=== PATIENT | female | born 1950 | race Two or more races ===

== ENCOUNTER → 2022-08-02 12:39 | Outpatient (BNVA) | payer MEDICARE, OTHER, SELFPAY | PROVIDERS: PCP Physician Assistant; Visit Provider Psychiatry & Neurology Neurology | DX: G45.9 Transient cerebral ischemic attack, unspecified (principal); H34.9 Unspecified retinal vascular occlusion; R41.3 Other amnesia; R06.83 Snoring; G47.00 Insomnia, unspecified; I48.91 Unspecified atrial fibrillation; Z79.01 Long term (current) use of anticoagulants; Z79.82 Long term (current) use of aspirin | CPT/HCPCS: 99202 ==

== ENCOUNTER → 2022-09-23 14:59 | Outpatient (REF) | payer MEDICARE, OTHER, SELFPAY | LOC: HO.SL 14:59 | PROVIDERS: Visit Provider Psychiatry & Neurology Neurology | DX: G47.00 Insomnia, unspecified (principal); G47.10 Hypersomnia, unspecified; R06.83 Snoring | CPT/HCPCS: 95806 ==

== ENCOUNTER → 2022-11-04 10:34 | Outpatient (BNVA) | payer MEDICARE, OTHER, SELFPAY | PROVIDERS: PCP Physician Assistant; Visit Provider Psychiatry & Neurology Neurology | DX: R06.83 Snoring (principal); G47.00 Insomnia, unspecified; I48.91 Unspecified atrial fibrillation; R41.3 Other amnesia; G45.9 Transient cerebral ischemic attack, unspecified; H34.9 Unspecified retinal vascular occlusion | CPT/HCPCS: 99212 ==

== ENCOUNTER → 2023-02-20 19:30 | Outpatient (REF) | payer MEDICARE, OTHER, SELFPAY | LOC: HO.SL 19:30 | PROVIDERS: PCP Physician Assistant; Visit Provider Psychiatry & Neurology Neurology | DX: G47.10 Hypersomnia, unspecified (principal); G47.00 Insomnia, unspecified; R06.83 Snoring | CPT/HCPCS: 95810 ==

== ENCOUNTER 2023-11-04 09:24 | Outpatient (AMB) | payer MEDICARE, OTHER, SELFPAY ==
--- NOTE | 2023-11-04 09:31 | A.OFFVIS_ITS ---
Intake Vital Signs 11/04/23 09:32 Height 5 ft 10 in Weight 191 lb 2 oz BMI 27.4 BP 148/80 H Blood Pressure Location Lt brachial Position Sitting Respiration 15 Pulse 98 Pulse Source Pulse Oximeter Pulse Oximetry (%) 96 Oxygen Delivery Method Room Air Intake Visit Reasons: F/u for-Snoring/Insomnia - LVM Intake Note: Pt presents to the office for follow up for snoring and insomnia. [place] Leverman Required: No Allergies Sulfa (Sulfonamide Antibiotics) Allergy (Mild, Verified 11/04/23 09:32) Hives HPI HPI Comments History of Present Illness Details 73 y/o female comes for f/u of memory lo ss and sleep study. The PSG sleep study result was no evidence of sleep apnea. The AHI was less than 1/hr and oxygen sven was 90%. She did not have neuropsych evaluation yet. She can sleep 6 hrs, but very light sleep. She uses magnesium 100 mg and melatonin as needed, and it helps her sleep better. She is a retired teacher for 30 years, now owns a business etc. She needs to write a note everyday, feeling needs to monitor everything to keep up the stuffs. She still can handle her business and finances. Previous history-She was seen by puppet engineer 1 year ago for cataract surgery in her right eye, incidentally was also found to have retinal artery occlusion of the left. She denies any symptoms. She had CT brain - MRI brain nonfocal, Carotid Doppler showed no significant stenosis. She was diagnosed with atrial fibrillation and started on Eliquis. Prior to that he was on aspirin and atorvastatin. [facility] Medical History (Updated 11/04/22 @ 11:06 by Suzie Brown MD) Atrial fibrillation Pheochromocytoma Anxiety Pulmonary nodule HTN (hypertension) Hyperlipidemia Neck pain IBS (irritable bowel syndrome) Head injury COPD (chronic obstructive pulmonary disease) GERD (gastroesophageal reflux disease) Prediabetes Surgical History (Updated 11/04/23 @ 09:38 by Elsi Dooley CMA) History of intestinal surgery History of partial cystectomy Hx of eye surgery Family History Mother COPD (chronic obstructive pulmonary disease) Acute arthritis Heart problem Father Diabetes Social History Alcohol intake: current Alcohol intake frequency: does not drink Patient Tobacco Use Status: Former Tobacco user Review of Systems Const All systems reviewed & are unremarkable except as noted in HPI and below Physical Exam Vital Signs: Last Vital Signs Pulse 98 11/04/23 09:32 Resp 15 11/04/23 09:32 BP 148/80 H 11/04/23 09:32 Pulse Ox 96 11/04/23 09:32 Oxygen Delivery Method Room Air 11/04/23 09:32 BMI result Body Mass Index 27.4 Const General: cooperative, healthy appearing, comfortable and no acute distress Nutritional Appearance: average body habitus Orientation/consciousness: patient oriented x3 HEENT Head: Yes normal to inspection Neck Neck: Yes normal visual inspection and Yes full ROM Neuro General: patient oriented x3, gait normal, tone normal, moves all extremities and no focal motor deficits Cranial nerves: Yes Facial sensation intact/muscles of mastication intact, Yes Bilaterally intact EOM present, Yes Nystagmus not present, Yes Normal facial strength present, Yes Midline tongue present and Yes Symmetric palate elevation present Cognition (Neuro): normal cognition Gait exam (Neuro): Normal gait present Motor exam (neuro): 5/5 motor strength present throughout and Normal motor muscle tone present throughout Deep tendon reflexes (DTR's): Right triceps reflex intensity grade: 1+, Left triceps reflex intensity grade: 1+, Rt Biceps (C5, C6): 1+, Left biceps reflex intensity grade: 1+, Right brachioradialis reflex intensity grade: 1+, Left brachioradialis reflex intensity grade: 1+, Right patellar reflex intensity grade: 1+ and Left patellar reflex intensity grade: 1+ Coordination: [id number] test normal Assessment & Plan Assessment & Plan (1) TIA (transient ischemic attack): Comment: likely cardioembolic Code(s): G45.9 - Transient cerebral ischemic attack, unspecified (2) Retinal artery occlusion: Code(s): H34.9 - Unspecified retinal vascular occlusion (3) Memory loss: Code(s): R41.3 - Other amnesia (4) Insomnia: Code(s): G47.00 - Insomnia, unspecified Plan Continue eliquis 5mg bid and atorvastatin 20mg qd. Advised patient to undergo Neuropsych evaluation. Advised patient to try magnesium 400 mg qHS for sleep. Continue to do physical and cognitive exercise. Coding Level of Care Code Est Pt Level 4 (89613) Diagnoses TIA (transient ischemic attack) G45.9 Retinal artery occlusion H34.9 Memory loss R41.3 Insomnia G47.00
[2023-11-04 09:32] VITALS: BP 148/80; PULSE 98; RESP 15; O2SAT 96; BMI 27.4
== END 2023-11-04 10:01 | disposition home or self-care (01) ==
PROVIDERS: PCP Physician Assistant; Visit Provider Nurse Practitioner Family
DX: G45.9 Transient cerebral ischemic attack, unspecified (principal); H34.9 Unspecified retinal vascular occlusion; R41.3 Other amnesia; G47.00 Insomnia, unspecified
CPT/HCPCS: 99214

== ENCOUNTER → 2023-11-04 09:24 | Outpatient (BNVA) | payer MEDICARE, OTHER, SELFPAY | PROVIDERS: PCP Physician Assistant; Visit Provider Nurse Practitioner Family | DX: G45.9 Transient cerebral ischemic attack, unspecified (principal); G47.00 Insomnia, unspecified; H34.9 Unspecified retinal vascular occlusion; R41.3 Other amnesia | CPT/HCPCS: 99212 ==

== ENCOUNTER 2024-04-04 13:51 | Outpatient (AMB) | payer MEDICARE, OTHER, SELFPAY ==
--- NOTE | 2024-04-04 14:01 | A.OFFVIS_ITS ---
Vital Signs 04/04/24 14:02 Height 5 ft 10 in Weight 197 lb 2 oz BMI 28.3 BP 148/72 H Blood Pressure Location Rt brachial Position Sitting Respiration 17 Pulse 64 Pulse Source Palpation Intake Visit Reasons: 6 mo f/u - Snoring/Insomnia-CONF Intake Note: Pt presents for 5 month follow up for insomnia. Pt reports she did not have neuropsych testing done. Paleology Teacher Required: No Allergies Sulfa (Sulfonamide Antibiotics) Allergy (Mild, Verified 04/04/24 14:02) Hives Medication List - Last Reconciled 04/04/24 by Suzie Brown MD albuterol sulfate 90 mcg/actuation 1 inh inhalation Q4-6H PRN amlodipine 5 mg PO DAILY apixaban (Eliquis) 5 mg PO BID atorvastatin 20 mg PO BEDTIME buspirone 5 mg PO BID carvedilol 6.25 mg PO BID cholecalciferol (vitamin D3) 50 mcg PO DAILY cyclopentolate 0.5% (Cyclogyl) 1 drp ophthalmic (eye) Q10M doxycycline hyclate 20 mg PO BID hydrochlorothiazide 12.5 mg PO DAILY magnesium citrate 100 mg PO DAILY multivitamin (Daily Multi-Vitamin tablet) 1 tab PO DAILY omega-3 fatty acids 1,000 mg PO DAILY vitamin B complex 1 cap PO DAILY HPI Comments Details: 74 y/o female comes for f/u . she had syncope 1 month ago and was thought to be due to her bradycardia ? . she is seeing Dr. Georges at [facility]. she has a heart monitor now. The PSG sleep study result was no evidence of sleep apnea. The AHI was less than 1/hr and oxygen sven was 90%. She sleeps good 6-7 hrs . She uses magnesium 100 mg and melatonin as needed, and it helps her sleep better. She is a retired teacher for 30 years, now owns a business etc. She needs to write a note everyday, feeling needs to monitor everything to keep up the stuffs. She still can handle her business and finances. Previous history-She was seen by molder machine tender 1 year ago for cataract surgery in her right eye, incidentally was also found to have retinal artery occlusion of the left. She denies any symptoms. She had CT brain - MRI brain nonfocal, Carotid Doppler showed no significant stenosis. She was diagnosed with atrial fibrillation and started on Eliquis. Prior to that he was on aspirin and atorvastatin. [facility] Medical History Presence of implantable pulmonary artery pressure and heart rate monitoring system Atrial fibrillation Pheochromocytoma Anxiety Pulmonary nodule HTN (hypertension) Hyperlipidemia Neck pain IBS (irritable bowel syndrome) Head injury COPD (chronic obstructive pulmonary disease) GERD (gastroesophageal reflux disease) Prediabetes Surgical History H/O hemorrhoidectomy History of intestinal surgery History of partial cystectomy Hx of eye surgery Family History Mother COPD (chronic obstructive pulmonary disease) Acute arthritis Heart problem Father Diabetes Social History Alcohol intake: current Alcohol intake frequency: does not drink Patient Tobacco Use Status: Former Tobacco user Physical Exam Vital Signs: Last Vital Signs Pulse 64 04/04/24 14:02 Resp 17 04/04/24 14:02 BP 148/72 H 04/04/24 14:02 BMI result Body Mass Index 28.3 Const General: cooperative, healthy appearing, comfortable and no acute distress Nutritional Appearance: average body habitus Orientation/consciousness: patient oriented x3 HEENT Head: Yes normal to inspection Neck Neck: Yes normal visual inspection and Yes full ROM Neuro Other: MOCA- 28/30 General: patient oriented x3, gait normal, tone normal, moves all extremities and no focal motor deficits Cranial nerves: Yes Facial sensation intact/muscles of mastication intact, Yes Bilaterally intact EOM present, Yes Nystagmus not present, Yes Normal facial strength present, Yes Midline tongue present and Yes Symmetric palate elevation present Cognition (Neuro): normal cognition Gait exam (Neuro): Normal gait present Motor exam (neuro): 5/5 motor strength present throughout and Normal motor muscle tone present throughout Deep tendon reflexes (DTR's): Right triceps reflex intensity grade: 1+, Left triceps reflex intensity grade: 1+, Rt Biceps (C5, C6): 1+, Left biceps reflex intensity grade: 1+, Right brachioradialis reflex intensity grade: 1+, Left brachioradialis reflex intensity grade: 1+, Right patellar reflex intensity grade: 1+ and Left patellar reflex intensity grade: 1+ Coordination: [id number] test normal Assessment & Plan Assessment & Plan (1) TIA (transient ischemic attack): Comment: likely cardioembolic Code(s): G45.9 - Transient cerebral ischemic attack, unspecified Category: Medical (2) Retinal artery occlusion: Code(s): H34.9 - Unspecified retinal vascular occlusion Category: Medical (3) Memory loss: Comment: tested well on MOCA Code(s): R41.3 - Other amnesia Category: Medical (4) Insomnia: Code(s): G47.00 - Insomnia, unspecified Category: Medical Plan Continue eliquis 5mg bid and atorvastatin 20mg qd. Advised patient to try magnesium 400 mg qHS for sleep. Continue to do physical and cognitive exercise. Refer to pain management for sciatica Orders: Referrals Pain Management Referral M54.30 - Sciatica, unspecified side Coding Level of Care Code Est Pt Level 4 (30294) Diagnoses TIA (transient ischemic attack) G45.9 Retinal artery occlusion H34.9 Memory loss R41.3 Insomnia G47.00
[2024-04-04 14:02] VITALS: BP 148/72; PULSE 64; RESP 17; BMI 28.3
== END 2024-04-04 14:32 | disposition home or self-care (01) ==
PROVIDERS: Absent Provider Psychiatry & Neurology Neurology; PCP Physician Assistant; Visit Provider Psychiatry & Neurology Neurology
DX: G45.9 Transient cerebral ischemic attack, unspecified (principal); H34.9 Unspecified retinal vascular occlusion; R41.3 Other amnesia; G47.00 Insomnia, unspecified
CPT/HCPCS: 99214

== ENCOUNTER → 2024-04-04 13:51 | Outpatient (BNVA) | payer MEDICARE, OTHER, SELFPAY | PROVIDERS: Absent Provider Psychiatry & Neurology Neurology; PCP Physician Assistant; Visit Provider Psychiatry & Neurology Neurology | DX: G47.00 Insomnia, unspecified (principal); G45.9 Transient cerebral ischemic attack, unspecified; H34.9 Unspecified retinal vascular occlusion; F41.3 Other mixed anxiety disorders | CPT/HCPCS: 99212 ==

== ENCOUNTER 2024-10-16 10:32 | Outpatient (AMB) | payer MEDICARE, OTHER, SELFPAY ==
[2024-10-16 10:43] VITALS: BMI 27.4
--- NOTE | 2024-10-16 10:43 | A.OFFVIS_ITS ---
Vital Signs 10/16/24 10:43 Height 5 ft 10 in Weight 191 lb BMI 27.4 Intake Visit Reasons: 6 mo f/u - Snoring/Insomnia Intake Note: patient presents for follow up severe headaches and still experiencing insomnia Allergies Sulfa (Sulfonamide Antibiotics) Allergy (Mild, Verified 10/16/24 10:45) Hives Medication List - Last Reconciled 10/16/24 by Omar Gooden PA-C albuterol sulfate 90 mcg/actuation 1 inh inhalation Q4-6H PRN albuterol sulfate 90 mcg/actuation inhalation amlodipine 5 mg PO DAILY apixaban (Eliquis) 5 mg PO BID buspirone 5 mg PO BID carvedilol 6.25 mg PO BID cholecalciferol (vitamin D3) 50 mcg PO DAILY cyclopentolate 0.5% (Cyclogyl) 1 drp ophthalmic (eye) Q10M hydrochlorothiazide 12.5 mg PO DAILY magnesium citrate 100 mg PO DAILY multivitamin (Daily Multi-Vitamin tablet) 1 tab PO DAILY omega-3 fatty acids 1,000 mg PO DAILY omeprazole 20 mg PO DAILY pantoprazole 40 mg PO BID rosuvastatin 10 mg PO BEDTIME vitamin B complex 1 cap PO DAILY HPI Comments Details: 74 y/o female h/o sciatica comes for f/u Headaches. She had syncope 1 month ago and was thought to be due to her bradycardia ? . she is seeing Dr. Georges at [facility]. she has a heart monitor now. The PSG sleep study result was no evidence of sleep apnea. 09/2022 The AHI was less than 1/hr and oxygen sven was 90%. She sleeps good 6-7 hrs . She uses magnesium 100 mg and melatonin as needed, and it helps her sleep bett er. She is a retired teacher for 30 years, now owns a business etc. She needs to write a note everyday, feeling needs to monitor everything to keep up the stuffs. She still can handle her business and finances. Previous history-She was seen by tool and die maker 1 year ago for cataract surgery in her right eye, will have left eye in Spring 2023 Dr. Brown. Incidentally was also found to have retinal artery occlusion of the left. She is seeing floaters now, will f/u with opthomalogist Nov 2024. She had CT brain - MRI brain non-focal, Carotid Doppler showed no significant stenosis. She was diagnosed with atrial fibrillation and started on Eliquis. January 2024 had a fall no injuries, PT 6 weeks and rehab. Takes her time mindfully when walking and does 15min of balance exercises daily. Headaches are stress related, lasting all night, daily, start at the nape of neck occipital and move to the frontal and temporal area, throbbing. She changed her diet and takes Protonix PRN, 1/2 of tablet. Neck tension, stiffness and pain on rotation to the R.>L. Started Tylenol daily. Last one was a month ago she took Tramadol post surgical procedure (09/14/24), Meiobmian Gland atrophy [place] [place]. Burnett. Sciatic - pain R. Leg to the hip, all the time she stretches and sees a chiropractor - Lower back MRI per Ortho. [facility] Medical History Sciatica Presence of implantable pulmonary artery pressure and heart rate monitoring system Atrial fibrillation Pheochromocytoma Anxiety Pulmonary nodule HTN (hypertension) Hyperlipidemia Neck pain IBS (irritable bowel syndrome) Head injury COPD (chronic obstructive pulmonary disease) GERD (gastroesophageal reflux disease) Prediabetes Surgical History H/O hemorrhoidectomy History of intestinal surgery History of partial cystectomy Hx of eye surgery Family History Mother COPD (chronic obstructive pulmonary disease) Acute arthritis Heart problem Father Diabetes Social History Alcohol intake: current Alcohol intake frequency: does not drink Patient Tobacco Use Status: Former Tobacco user Review of Systems Const All systems reviewed & are unremarkable except as noted in HPI and below Eyes Reports floaters and Reports other (no blurry vision or obstructed vision.) Physical Exam Vital Signs: BMI result Body Mass Index 27.4 Const General: cooperative, comfortable and no acute distress Nutritional Appearance: average body habitus Orientation/consciousness: patient oriented x3 Eyes Pupils: Equal, round and reactive pupils present Neck Neck: Yes full ROM (limited ROM to the R.) Resp Effort & Inspection: normal respiratory effort and able to speak in complete sentences Neuro General: patient oriented x3 Cranial nerves: Yes CN's II-XII intact bilaterally, Yes Facial sensation intact/muscles of mastication intact, Yes Equal, round and reactive pupils present, Yes Normal accommodation reflex present, Yes Bilaterally intact EOM present, Yes Nystagmus not present, Yes Normal facial strength present, Yes Midline tongue present, Yes Symmetric palate elevation present, Yes Ability to bilaterally rotate head present and Yes Ability to bilaterally elevate shoulders present Motor exam (neuro): Abnormal motor strength present (weak quads on resistance) Deep tendon reflexes (DTR's): Right triceps reflex intensity grade: 2+, Left triceps reflex intensity grade: 2+, Rt Biceps (C5, C6): 2+, Left biceps reflex intensity grade: 2+, Right brachioradialis reflex intensity grade: 2+, Left brachioradialis reflex intensity grade: 2+, Right patellar reflex intensity grade: 2+ and Left patellar reflex intensity grade: 2+ Coordination: segvbe-[id number] test normal Psych Appearance: grossly normal Thought content: Normal thought content present Insight: Good insight present (Psych) Judgement: Good judgement present (Psych) Results Reviewed Results Reviewed: Sleep Study PSG 09/2022 Normal Sleep Study Sleep Study PSG 02/2023 Normal Sleep Study with Periodic Limb Movements Assessment & Plan Assessment & Plan (1) Cervicalgia of zlimjfua-btexfdt-oxupb region: Code(s): M54.2 - Cervicalgia Category: Medical (2) Sciatica: Code(s): M54.30 - Sciatica, unspecified side Category: Medical Qualifiers: Laterality: right Qualified Code(s): M54.31 - Sciatica, right side (3) Insomnia: Code(s): G47.00 - Insomnia, unspecified Category: Medical Qualifiers: Insomnia type: unspecified Qualified Code(s): G47.00 - Insomnia, unspecified Plan Cervicalgia, take cyclobenzaprine 5mg PO at bedtime, do not take during the day as this medication is sedating and it will make you sleepy. Do not drive after taking this medication. Physical Therapy with [facility] PT - for Neck pain and stiffness. For headaches may use migraine cap as needed, tylenol, lay down in a dark, quiet space, follow up with tool and die maker. Follow up with pain management at [facility]. For R. sciatica - per ortho Physical Therapy Orders: Orders PT Evaluation and Treatment 10/16/24 M54.2 - Cervicalgia Referrals Pain Management Referral M54.30 - Sciatica, unspecified side Medications: New cyclobenzaprine 5mg PO at bedtime only, will make you sleepy. 5 mg PO BEDTIME 20 tabs 0RF Cervicalgia MDD 5mg PO at bedtime M54.2 - Cervicalgia pantoprazole 40 mg PO BID 30 tabs 1RF Coding Level of Care Code Est Pt Level 4 (37214) Complex EM visit Add On G2211 Diagnoses Cervicalgia of wcsrakpa-vrymdrm-jqori region M54.2 Sciatica of right side M54.31 Laterality: right Insomnia, unspecified type G47.00 Insomnia type: unspecified
== END 2024-10-16 11:48 | disposition home or self-care (01) ==
PROVIDERS: PCP Physician Assistant; Visit Provider Physician Assistant Medical
DX: M54.2 Cervicalgia (principal); M54.31 Sciatica, right side; G47.00 Insomnia, unspecified
CPT/HCPCS: 99214; G2211

== ENCOUNTER → 2024-10-16 10:32 | Outpatient (BNVA) | payer MEDICARE, OTHER, SELFPAY | PROVIDERS: PCP Physician Assistant; Visit Provider Physician Assistant Medical | DX: M54.2 Cervicalgia (principal); M54.31 Sciatica, right side; G47.00 Insomnia, unspecified | CPT/HCPCS: 99212 ==

== ENCOUNTER 2024-11-01 09:18 | Outpatient (REF) | payer MEDICARE, OTHER, SELFPAY ==
--- OUTSIDE RECORDS SUMMARY | 2024-11-01 10:28 | XMS_ITS | Continuity of Care Document ---
Author Organization [facility] Address [address] [place] [address] Phone [phone] Social History Type Date Description Comments Sex Unknown Medical Devices Description No Information Available Encounters Description No Information Available Assessments Description No Information Available Plan of Treatment No Information Available Functional Status Description No Information Available Mental Status Description No Information Available Referrals Description No Information Available
== END 2024-11-01 09:19 | disposition home or self-care (01) ==
LOC: HO.XRAY 09:18
PROVIDERS: PCP Physician Assistant; Visit Provider Registered Nurse Emergency
DX: M54.31 Sciatica, right side (principal); M54.16 Radiculopathy, lumbar region
CPT/HCPCS: 72110; 99202

== ENCOUNTER 2024-11-01 09:18 | Outpatient (AMB) | payer MEDICARE, OTHER, SELFPAY ==
--- NOTE | 2024-11-01 09:21 | MHC.OFFVIS ---
Vital Signs 11/01/24 09:27 Height 5 ft 10 in Weight 196 lb 2 oz BMI 28.1 BP 146/68 H Blood Pressure Location Lt brachial Position Sitting Pulse 59 Pulse Source Pulse Oximeter Pulse Oximetry (%) 97 Oxygen Delivery Method Room Air Intake Visit Reasons: Sciatica, unspecified side Puppet Maker Required: No Accompanied by: Self / Same As Patient Allergies Sulfa (Sulfonamide Antibiotics) Allergy (Mild, Verified 11/01/24 09:28) Hives HPI Comments Details: Narcisa is a very pleasant 74-year-old female who presents the office today for evaluation and management of her chronic left lower back pain Past medical history significant for cervicalgia, sciatica, hypersomnia, insomnia, retinal artery occlusion, TIA, AFib, anxiety, hypertension, hyperlipidemia, IBS, COPD, GERD, prediabetes She endorses left lower back pain with radiation down the left leg to the calf. She has been suffering with this pain for many years, has been progressively getting worse. She had a fall in January of this year which exacerbated her pain. She completed physical therapy after and continues with home exercise program but pain persists. Previously underwent chiropractic manipulation for many years. She stopped a couple years ago and has not returned. Unable to take nonsteroidal anti-inflammatory medications secondary to current use of Eliquis Currently takes Tylenol with some improvement. Also using lidocaine patches with some improvement. Pain is worse with activity, lifting, moving, bending Pain today is rated as a 5/10, intermittent and worse in the evening Denies lower extremity weakness. Endorses numbness, tingling, pins and needles to the left lower leg Denies red flag symptoms including new loss of bowel, bladder or saddle anesthesia In terms of muscle damage condition is described as burning, aching, stabbing, pins and needles. Pain is negatively impacting patient's enjoyment of life, general activity, sleep, ability to perform activities of daily living Endorses current use of anticoagulants Does have implantable device, sales development consultant ? Denies current use of nicotine, tobacco, alcohol or illicit substances [facility] Medical History Sciatica Presence of implantable pulmonary artery pressure and heart rate monitoring system Atrial fibrillation Pheochromocytoma Anxiety Pulmonary nodule HTN (hypertension) Hyperlipidemia Neck pain IBS (irritable bowel syndrome) Head injury COPD (chronic obstructive pulmonary disease) GERD (gastroesophageal reflux disease) Prediabetes Surgical History H/O hemorrhoidectomy History of intestinal surgery History of partial cystectomy Hx of eye surgery Family History Mother COPD (chronic obstructive pulmonary disease) Acute arthritis Heart problem Father Diabetes Social History Alcohol intake: current Alcohol intake frequency: does not drink Patient Tobacco Use Status: Former Tobacco user Review of Systems Const All systems reviewed & are unremarkable except as noted in HPI and below Physical Exam Vital Signs: Last Vital Signs Pulse 59 11/01/24 09:27 BP 146/68 H 11/01/24 09:27 Pulse Ox 97 11/01/24 09:27 Oxygen Delivery Method Room Air 11/01/24 09:27 BMI result Body Mass Index 28.1 General: awake, alert, oriented. Answers questions appropriately. Fully engaged in examination. Skin: warm, dry, intact HEENT: Normocephalic. Hearing intact. Cardiac: External chest normal in appearance. Respiratory: No cough, audible wheezing or stridor. Abdomen: without gross distension. MS: No obvious swelling or deformities. Able to stand on bilateral tiptoes and bilateral heels.? Able to transition from sit to stand unassisted. Ambulates with bilaterally normal heel strike and toe off SLR positive on the left Facet loading positive Nontender over bilateral PSIS Tenderness to midline lumbar vertebrae and lumbar paraspinal muscles Bilateral lower extremity strength 5/5 Aid of footdrop, negative clonus Neurological: Oriented to person, place, time and situation. Thought process intact. No gait abnormalities appreciated. Psychiatric: Appropriate mood and affect. Good judgment and insight. Assessment & Plan Assessment & Plan (1) Lumbar radiculopathy: Code(s): M54.16 - Radiculopathy, lumbar region Category: Medical Plan Patient presented to the office today for evaluation and management of her chronic left lower back pain History, physical exam and provocative testing consistent with lumbar radiculopathy Patient would like to retry physical therapy, she will call us with a PT office close to her home so a referral can be sent. X-ray ordered for evaluation MRI ordered to evaluate for neural compromise Patient has exhausted conservative therapy including greater than 6 weeks of PT, home exercise program, topical medications, [id number] medications. She is unable to take nonsteroidal anti-inflammatory medications due to current use of Eliquis. Order placed for lidocaine 5% topical patches. On for 12 hours off for 12 hours. All questions and concerns were answered, patient agrees with the plan. Follow up after MRI, sooner if needed Orders: Orders XR lumbar spine 4V min Today M54.31 - Sciatica, right side MR lumbar spine wo con Today M54.16 - Radiculopathy, lumbar region Medications: New lidocaine 5% leave on most painful area for up to 12 hrs 1 patch topical DAILY 30 ea 3RF Coding Level of Care Code New Pt Level 4 (20955) Complex EM visit Add On G2211 Diagnoses Lumbar radiculopathy M54.16
[2024-11-01 09:27] VITALS: BP 146/68; PULSE 59; O2SAT 97; BMI 28.1
--- OUTSIDE RECORDS SUMMARY | 2024-11-01 09:28 | XMS_ITS | Continuity of Care Document ---
Author Organization [facility] Address [address] [facility] [address] [place] [address] Phone [phone] Social History Type Date Description Comments Sex Unknown Medical Devices Description No Information Available Encounters Description No Information Available Assessments Description No Information Available Plan of Treatment No Information Available Functional Status Description No Information Available Mental Status Description No Information Available Referrals Description No Information Available
== END 2024-11-01 10:01 | disposition home or self-care (01) ==
PROVIDERS: PCP Physician Assistant; Visit Provider Registered Nurse Emergency
DX: M54.16 Radiculopathy, lumbar region (principal)
CPT/HCPCS: 99204; G2211

== ENCOUNTER 2025-05-02 13:24 | Outpatient (AMB) | payer MEDICARE, OTHER, SELFPAY ==
--- NOTE | 2025-05-02 13:25 | A.OFFVIS_ITS ---
Vital Signs 05/02/25 13:26 Height 5 ft 10 in Weight 184 lb BMI 26.4 BP 124/72 Blood Pressure Location Rt brachial Position Sitting Intake Visit Reasons: Follow up Intake Note: Patient presents follow up Insomnia. patient saw Pain Management 11/01 Allergies Sulfa (Sulfonamide Antibiotics) Allergy (Mild, Verified 05/02/25 13:27) Hives HPI Comments Details: 75 y/o female h/o sciatica comes for f/u Headaches. Her passed in 01/2025 due to stroke and PR due to insulin overdose. The PSG sleep study result was no evidence of sleep apnea. 09/2022 The AHI was less than 1/hr and oxygen sven was 90%. She sleeps good 6-7 hrs, most days however with the loss of her spouse she is now having difficulty sleeping at night and will pace. She is a retired teacher for 30 years, now owns a business etc. Memory is poor at baseline, she uses lists and has to write everything down all her daily tasks. She gets confused and loses focus easily. Denies headaches. She has cervicalgia and neck tension with stiffness and chronic pain on rotation to the R.>L., she uses her muscle relaxer prn. She is seeing floaters now, meiobian gland dysfunction, and blepharitis will f/u with her opthomalogist. She was diagnosed with atrial fibrillation and started on Eliquis, has a heart monitor. January 2024 had a fall no injuries, PT 6 weeks and rehab. Takes her time mindfully when walking and does 15min of balance exercises daily. Deies RLS symptoms. Sciatica pain L. Leg to the hip and radiates to back of the knee, she stretches and sees a chiropractor for LB pain. She also started a new diet, anti-inflammatory diet, 75% raw and juicing. [facility] Medical History Sciatica Presence of implantable pulmonary artery pressure and heart rate monitoring system Atrial fibrillation Pheochromocytoma Anxiety Pulmonary nodule HTN (hypertension) Hyperlipidemia Neck pain IBS (irritable bowel syndrome) Head injury COPD (chronic obstructive pulmonary disease) GERD (gastroesophageal reflux disease) Prediabetes Surgical History H/O hemorrhoidectomy History of intestinal surgery History of partial cystectomy Hx of eye surgery Family History Mother COPD (chronic obstructive pulmonary disease) Acute arthritis Heart problem Father Diabetes Social History Alcohol intake: current Alcohol intake frequency: does not drink Patient Tobacco Use Status: Former Tobacco user Physical Exam Vital Signs: Last Vital Signs BP 124/72 05/02/25 13:26 BMI result Body Mass Index 26.4 Const General: cooperative, comfortable and no acute distress Nutritional Appearance: average body habitus Orientation/consciousness: patient oriented x3 Eyes Pupils: Equal, round and reactive pupils present Neck Neck: Yes full ROM (limited ROM to the R.) Resp Effort & Inspection: normal respiratory effort and able to speak in complete sentences Neuro General: patient oriented x3 and moves all extremities Cranial nerves: Yes CN's II-XII intact bilaterally, Yes Facial sensation intact/muscles of mastication intact, Yes Equal, round and reactive pupils present, Yes Normal accommodation reflex present, Yes Bilaterally intact EOM present, Yes Nystagmus not present, Yes Normal facial strength present, Yes Midline tongue present, Yes Symmetric palate elevation present, Yes Ability to bilaterally rotate head present and Yes Ability to bilaterally elevate shoulders present Motor exam (neuro): Abnormal motor strength present (weak quads on resistance) Coordination: zrqnfa-qf-lucv test normal Psych Appearance: grossly normal Thought content: Normal thought content present Insight: Good insight present (Psych) Judgement: Good judgement present (Psych) Results Reviewed Results Reviewed: XR/XR lumbar spine 4V min IMPRESSION: 1. No acute fracture or spondylolisthesis is seen. 2. The lumbar disc spaces are well-maintained. 3. There is multi-level lumbar endplate and facet arthropathy. Assessment & Plan Assessment & Plan (1) Insomnia: Comment: continue melatonin Code(s): G47.00 - Insomnia, unspecified Category: Medical Qualifiers: Insomnia type: unspecified Qualified Code(s): G47.00 - Insomnia, unspecified (2) Grief: Comment: Buspirone 5mg po daily Code(s): F43.21 - Adjustment disorder with depressed mood Category: Medical (3) Lumbar radiculopathy: Code(s): M54.16 - Radiculopathy, lumbar region Category: Medical (4) Chronic lower back pain: Comment: will send her for an MRI Code(s): M54.50 - Low back pain, unspecified; G89.29 - Other chronic pain Category: Medical Qualifiers: Back pain laterality: left Sciatica presence: with sciatica Sciatica laterality: sciatica of left side Qualified Code(s): M54.42 - Lumbago with sciatica, left side; G89.29 - Other chronic pain (5) Cervicalgia of qpbkpbuv-mcbanxf-chmph region: Code(s): M54.2 - Cervicalgia Category: Medical (6) Sciatica: Code(s): M54.30 - Sciatica, unspecified side Category: Medical Qualifiers: Laterality: right Qualified Code(s): M54.31 - Sciatica, right side Plan Insomnia continue taking 3-6mg melatonin as needed for sleep difficulties. Grief loss of spouse 01/2025, continue Buspar 5mg PO daily at bedtime and continue to seek support with brandie based support network, freinds and family. Cervicalgia, take cyclobenzaprine 5mg PO at bedtime, do not take during the day as this medication is sedating and it will make you sleepy. Do not drive after taking this medication. L. sciatica pain [facility] [place]. MRI for Lumbar pain? pinched nerve r/o. Xray 10/2024 reviewed facet arthropathy. F/u in 3months Orders: Orders MR lumbar spine wo/w con Today G89.29 - Other chronic pain, M54.16 - Radiculopathy, lumbar region, M54.50 - Low back pain, unspecified Medications: New buspirone take one tablet daily at bedtime. 5 mg PO BID 3 months 180 tabs 3RF depression MDD 5mg F43.21 - Adjustment disorder with depressed mood melatonin insomnia take one capsule daily 3 hours prior to bedtime. 5 mg PO DAILY 90 days 90 caps 0RF sleep difficulties MDD 5mg G47.00 - Insomnia, unspecified Patient Instructions: Sleep Hygiene provided: set a scheduled bedtime and wake time to help regulate the circadian rhythm and balance the release of pituitary hormones. Sleep in a dark room, temperatures below 68 degrees, and no devices n bed. Limit caffeinated products 6 hours prior to bed, and limit fluids 2-4 hours prior to bed. Gentle night yoga, diffusing essential oils, and playing soft music can be relaxing. Coding Level of Care Code Est Pt Level 4 (73894) Complex EM visit Add On G2211 Diagnoses Insomnia, unspecified type G47.00 Insomnia type: unspecified Grief F43.21 Lumbar radiculopathy M54.16 Chronic left-sided low back pain with left-sided sciatica M54.42; G89.29 Back pain laterality: left Sciatica presence: with sciatica Sciatica laterality: sciatica of left side Cervicalgia of bfspdago-urribbn-zudhi region M54.2 Sciatica of right side M54.31 Laterality: right Time Spent (min) 30 Comment coping with grief
[2025-05-02 13:26] VITALS: BP 124/72; BMI 26.4
--- OUTSIDE RECORDS SUMMARY | 2025-05-02 15:39 | XMS_ITS | Encounter Summary ---
Author Organization [facility] Address [address] [place] [address] Care Team Providers Care Supervisor [employer] Name Role Phone Juan Georges MD Unavailable [phone] Miguel A Chavez NP Unavailable [phone] Robert Henriquez MD Primary Care Provider [phone] Charo Del Toro NP Unavailable [phone] Ayden Henriquez MD Primary Care Provider Unavailabl e Reason for Visit * Reason Onset Date Comments Surgical Wound Check 02/15/2024 Encounter Details Date Type Department Care Team Description 02/15/2024 Telephone Cardio PVC POC [address] [facility] [address] [place] [address] Socrates Laura MD [address] [facility] [address] [place] [address] Surgical Wound Check Social History Tobacco Use Types Packs/Day Years Used Date Smoking Tobacco: Former Cigarettes Smokeless Tobacco: Never Comments:College days - very little smoking quit about 50 years ago Alcohol Use Standard Drinks/Week Comments Not Currently 1 (1 standard drink = 0.6 oz pur e alcohol) Alcohol Habits Answer Date Recorded How often do you have a drink containing alcohol ? Monthly or less 12/03/2020 How many drinks containing a lcohol do you have on a typical day when you are drinking? 1 or 2 12/03/2020 How often do you have six or more drinks on one occasion? Never 12/03/2020 Sex Assigned at Date Recorded Female 12/31/2021 9:[address] Job Start Date Occupation Industry Not on file Not on file Not on file documented as of this encounter Miscellaneous Notes * Telephone Encounter - Amalia Cordero C.M.A. - 02/15/2024 8:54 AM EDT I called patient to follow-up on ILR implant. No answer. LMOM to call if any concerns. Mailed copy of Patient Remote Agreement. documented in this encounter Plan of Treatment Not on file documented as of this encounter Visit Diagnoses Not on filedocumented in this encounter Care Teams Supervisor [employer] Relationship Specialty Start Date End Date Robert Henriquez MD [address] [place] [address] [place] [address] PCP - General Internal Medicine 08/08/23 07/03/24 Ayden Henriquez MD [address] [place] [address] Yusra Ramirez [address] [place] [id number] PCP - General Internal Medicine 07/04/24 Juan Georges MD [address] [place] [address] [place] [address] Senior Game Designer Cardiovascular Disease 12/25/19 Miguel A Chavez NP [address] [place] [address] [place] [address] Nurse Practitioner Cardiology 12/03/20 Charo Del Toro NP [address] [place] [address] [place] [address] Cardiology 09/20/23 documented as of this encounter
== END 2025-05-02 14:33 | disposition home or self-care (01) ==
LOC: HO.HSMS 13:24
PROVIDERS: PCP Physician Assistant; Visit Provider Physician Assistant Medical
DX: G47.00 Insomnia, unspecified (principal); F43.21 Adjustment disorder with depressed mood; M54.16 Radiculopathy, lumbar region; M54.42 Lumbago with sciatica, left side; G89.29 Other chronic pain; M54.2 Cervicalgia; M54.31 Sciatica, right side
CPT/HCPCS: 99214; G2211

== ENCOUNTER → 2025-05-02 13:24 | Outpatient (BNVA) | payer MEDICARE, OTHER, SELFPAY | PROVIDERS: PCP Physician Assistant; Visit Provider Physician Assistant Medical | DX: G47.00 Insomnia, unspecified (principal); F43.21 Adjustment disorder with depressed mood; M54.31 Sciatica, right side; M54.16 Radiculopathy, lumbar region; M54.42 Lumbago with sciatica, left side; M54.2 Cervicalgia; G89.29 Other chronic pain | CPT/HCPCS: 99212 ==

== ENCOUNTER 2025-07-02 13:17 | Outpatient (REF) | payer MEDICARE, OTHER, SELFPAY ==
--- NOTE | ~2025-07-02 | MR_ITS ---
EXAMINATION: MR LUMBAR SPINE WITHOUT CONTRAST CLINICAL INFORMATION: Radiculopathy, lumbar. COMPARISON: None available. TECHNIQUE: MRI of the lumbar spine was obtained using routine sequences without contrast. FINDINGS: The last Rib-bearing vertebra labeled T12. Subtle bone marrow signal in the posterior elements/facet joints at L5-S1. Normal alignment. Bone marrow inhomogeneity. Conus medullaris ends at pedicle of L2 with normal signal. T11-12: No herniated disc. No neuroforamina stenosis. T12-L1: No herniated disc. No neuroforamina stenosis. L1-2: Broad-based disc bulging. No central spinal canal or neuroforamina stenosis. L2-3: Mild broad-based disc bulging. No central spinal canal or neuroforamina stenosis. L3-4: Broad-based disc bulging. No central spinal canal. Facet joint hypertrophy. Bilateral neuroforamina narrowing right greater than the left side. L4-5: Broad-based disc bulging. Facet joint and ligamentum flavum hypertrophy. No central spinal canal stenosis. Bilateral neuroforamina narrowing. L5-S1: Broad-based disc bulging. Facet joint hypertrophy. No central spinal canal stenosis. Bilateral neuroforamina narrowing. No prevertebral compartment hematoma, mass or fluid collection. There is a 6 mm nodule in the right adrenal gland. Mild soft tissue fullness left adrenal gland. There is an exophytic cystic lesion in the upper pole right kidney. MR/MR lumbar spine wo con IMPRESSION: Multilevel mild to moderate spondylosis from L2-3 to L5-S1 without compression upon neural elements. Electronically signed by: Walter Juarez MD 07/02/2025 03:06 PM EDT
--- OUTSIDE RECORDS SUMMARY | 2025-07-02 14:08 | XMS_ITS ---
Author Name [facility] Organization Unknown Care Team Organization Name Specialty Phone Email Start Date End Da te [facility] Robert Henriquez Primary Care 04/29/2023 024 [facility] Nikki De La Cruz Primary Care 09/28/2022 07/09/2024
--- OUTSIDE RECORDS SUMMARY | 2025-07-02 14:08 | XMS_ITS | Continuity of Care Document ---
Author Organization [facility] Address [address] [facility] [address] [place] [address] Phone [phone] Social History Type Date Description Comments Sex Female Sex Unknown Medical Devices Description No Information Available Encounters Description No Information Available Assessments Description No Information Available Plan of Treatment No Information Available Functional Status Description No Information Available Mental Status Description No Information Available Referrals Description No Information Available
--- OUTSIDE RECORDS SUMMARY | 2025-07-02 14:08 | XMS_ITS | Clinical Summary ---
Author Organization [facility] Address [address] [facility] [address] [place] [address] Care Team Providers Care Organ Tuner Electronic Name Role Phone No Pcp, Per Patient Primary Care Provider Unavai lable Allergies Active Allergy Reactions Criticality Noted Date Comments Latex Hives,Itching 04/09/1998 Sulfur Hives 01/10/1985 Medications hydroCHLOROthia zide (Microzide) 12.5 mg capsule Take 12.5 mg by mouth once daily. Active carvedilol (Coreg) 6.25 mg tablet Take 3.125 mg by mouth. 02/02/2023 Active Eliquis 5 mg tablet Take 1 tablet by mouth twice daily. 02/02/2023 Active albuterol 90 mcg/actuation inhaler Inhale 2 puffs every 6 (six) hours if needed. Active Anoro Ellipta 62.5-25 mcg/actuation blister with device Inhale 1 puff once daily. 12/28/2023 Active Calcium 500 With D 500 mg-10 mcg (400 unit) tablet Take 1 tablet by mouth twice daily. 11/14/2023 Active pantoprazole (ProtoNix) 40 mg EC tablet Take 40 mg by mouth with evening meal. 01/06/2024 Active rosuvastatin (Crestor) 10 mg tablet Take 10 mg by mouth with evening meal. Active Active Problems Problem Noted Date Diagnosed Date Paroxysmal atrial fibrillation (Multi-HCC) 09/07 Retinal artery occlusion 09/07/2024 HTN (hypertension) 09/07/2024 Hyperlipidemia 09/07/2024 Syncope 09/07/2024 COPD (chronic obstructive pulmonary disease) (Mu lti-HCC) 09/07/2024 Chronic headache disorder 09/07/2024 Venous insufficiency of both lower extremities 1 Asthma (Multi-HCC) 09/07/2024 Anxiety 09/07/2024 Gastroesophageal reflux disease 09/07/2024 Ectropion 09/07/2024 Pheochromocytoma 09/07/2024 Social History Tobacco Use Types Packs/Day Years Used Date Smoking Tobacco: Never Smokeless Tobacco: Never Tobacco Cessation:Counseling Given: Not Answered Alcohol Use Standard Drinks/Week Comments Not Currently 0 (1 standard drink = 0.6 oz pur e alcohol) Comments No Sex and Gender Information Value Date Recorded Sex Assigned at Female 09/13/2024 12:42 PM EDT Legal Sex Female 1:51 AM EST Gender Identity Female 09/13/2024 12:42 PM EDT Sexual Orientation Straight 09/14/2024 1: 30 PM EDT Last Filed Vital Signs Vital Sign Reading Time Taken Comments Blood Pressure 137/65 09/14/2024 4:00 PM EDT Pulse 46 09/14/2024 4:00 PM EDT Temperature 36.2 C (97.2 F) 09/14/2024 3:19 PM EDT Respiratory Rate 14 09/14/2024 4:00 PM EDT Oxygen Saturation 100% 09/14/2024 4:00 PM EDT Inhaled Oxygen Concentration - - Weight 87.1 kg (192 lb) 09/14/2024 1:43 PM EDT Height 177.8 cm (5' 10 ) 09/14/2024 1:43 PM EDT Body Mass Index 27.55 09/14/2024 1:43 PM EDT Plan of Treatment Health Maintenance Due Date Last Done Comments CT Colonography 1950 Colonoscopy 1950 Colorectal Cancer Screening 1950 FIT-DNA 1950 FIT 1950 FOBT 1950 Sigmoidoscopy 1950 Hepatitis C Screening 1968 Medicare Annual Wellness (AWV) 09/21/2018 COVID-19 Vaccine ( season) 2024 09/19/2023, 10/24/2022, 10/12/2021, Additional history exists Depression Screening 11/21/2024 Influenza Vaccine (#1) 2025 , 08/08/2023, 08/28/2021, Additional history exists Diabetes Screening 12/03/2025 12/03/2024 Mammogram 05/18/2026 05/18/2024 Lipid Panel 12/03/2029 12/03/2024 DTaP/Tdap/Td Vaccines (2 - Td or Tdap) 08/08/2033 08/08/2023 Pneumococcal Vaccine: 50+ Years Completed 08/15/2019, 09/20/2016 Bone Density Scan Completed 11/12/2024, 11/12/2024 Zoster Vaccines Completed 11/12/2024, 08/23, 10/04/2015 HIB Vaccines Aged Out No longer eligi ble based on patient's age to complete this topic HPV Vaccines Aged Out No longer eligi ble based on patient's age to complete this topic Hepatitis A Vaccines Aged Out No long er eligible based on patient's age to complete this topic Hepatitis B Vaccines Aged Out No long er eligible based on patient's age to complete this topic IPV Vaccines Aged Out No longer eligi ble based on patient's age to complete this topic Meningococcal B Vaccine Aged Out No l onger eligible based on patient's age to complete this topic Meningococcal Vaccine Aged Out No enzo elvin eligible based on patient's age to complete this topic Rotavirus Vaccines Aged Out No longer eligible based on patient's age to complete this topic Insurance MEDICARE PART A AND B [facility] MEDICARE SUPPLEMENT Advance Directives * Full Code (Latest Code Status on File) Date Activated Date Inactivated Comments 09/14/2024 1:28 PM Care Teams Organ Tuner Electronic Relationship Specialty Start Date End Date No Pcp, Per Patient [place] PCP - General [place] [facility] 09/14/24
== END 2025-07-02 13:18 | disposition home or self-care (01) ==
LOC: HO.MRI 13:17
PROVIDERS: PCP Student in an Organized Health Care Education/Training Program; Visit Provider Physician Assistant Medical
DX: M54.16 Radiculopathy, lumbar region (principal); M54.50 Low back pain, unspecified; G89.29 Other chronic pain
CPT/HCPCS: 72148

== ENCOUNTER → 2025-07-02 13:29 | Outpatient (BNV) | payer MEDICARE, OTHER, SELFPAY | PROVIDERS: PCP Student in an Organized Health Care Education/Training Program; Visit Provider Radiology Diagnostic Radiology | DX: M47.816 Spondylosis without myelopathy or radiculopathy, lumbar region (principal) | CPT/HCPCS: 72148 ==

== ENCOUNTER 2025-11-04 12:53 | Outpatient (AMB) | payer MEDICARE, OTHER, SELFPAY ==
--- NOTE | 2025-11-04 13:05 | MHC.OFFVIS ---
Vital Signs 11/04/25 13:06 11/04/25 14:16 Height 5 ft 10 in Weight 176 lb BMI 25.3 BP 124/68 Blood Pressure Location Rt brachial Position Sitting Pulse 60 Pulse Source Pulse Oximeter Pulse Oximetry (%) 88 L 97 Oxygen Delivery Method Room Air Room Air Comment Pulse ox reckecked after visit P 77b/min Intake Visit Reasons: 6 mo follow up Intake Note: Patient presents follow up Insomnia Medication. MRI in chart Calculation Reviewer Required: No Accompanied by: Self / Same As Patient Allergies Sulfa (Sulfonamide Antibiotics) Allergy (Mild, Verified 11/04/25 13:05) Hives HPI Comments Details: 75 y/o female with h/o sciatica comes for f/u headaches and MRI results. Interval med hx: h/o TIA will request records from [facility]. 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 side. MMSE is 30/30 today. MRI is reviewed with pt today she has lumbar spondylosis, we discussed, pain management and floor exercises such as yoga today. HST and PSG reviewed with pt, no evidence of ARMAAN, sleep efficiency is 68%. She has insomnia now better managed with Natrol supplements minus the melatonin, as this was giving her vivid dreams. She goes to bed at 11:30 wake sup at 7am. She feels a bit improved since the of her 01/2025 she is slowly recovering from the grief. Headaches now improved, will take tylenol prn headache, used to be daily lasting all day, with twitching l side of face and lip, she changed her diet and identified all triggers, avoids dairy, gluten, refined sugars, decreased salt, no chips and fried foods, no nitrates. She has lost weight today she is 176lbs.She has cervicalgia and neck tension with stiffness and chronic pain on rotation to the R.>L., she uses her muscle relaxer prn. Memory is poor at baseline, she uses lists and has to write everything down all her daily tasks. She gets confused and loses focus easily. She is concerned due to forgetting many tasks now. She is sees floaters due to Meibomian gland dysfunction and blepharitis. She was diagnosed with atrial fibrillation and started on Eliquis, has a heart monitor. Continues with PT aquatic and rehab. Takes her time, walks carefully and does 15min of balance exercises daily. Deies RLS symptoms. She continues to have sciatic pain L. Leg to the hip and radiates to back of the knee, she stretches and sees a chiropractor for LB pain, L2 - L3 to L5-S1. [facility] Medical History Sciatica Presence of implantable pulmonary artery pressure and heart rate monitoring system Atrial fibrillation Pheochromocytoma Anxiety Pulmonary nodule HTN (hypertension) Hyperlipidemia Neck pain IBS (irritable bowel syndrome) Head injury COPD (chronic obstructive pulmonary disease) GERD (gastroesophageal reflux disease) Prediabetes Surgical History H/O hemorrhoidectomy History of intestinal surgery History of partial cystectomy Hx of eye surgery Family History Mother COPD (chronic obstructive pulmonary disease) Acute arthritis Heart problem Father Diabetes Social History Alcohol intake: current Alcohol intake frequency: does not drink Patient Tobacco Use Status: Former Tobacco user Physical Exam Vital Signs: Last Vital Signs Pulse 60 11/04/25 13:06 BP 124/68 11/04/25 13:06 Pulse Ox 97 11/04/25 14:16 Oxygen Delivery Method Room Air 11/04/25 14:16 BMI result Body Mass Index 25.3 Const General: cooperative, comfortable and no acute distress Nutritional Appearance: average body habitus Orientation/consciousness: patient oriented x3 Eyes Pupils: Equal, round and reactive pupils present Neck Neck: Yes full ROM (limited ROM to the R.) Resp Effort & Inspection: normal respiratory effort and able to speak in complete sentences Neuro Other: Gait is off, unsteady. General: patient oriented x3 and moves all extremities Cranial nerves: Yes Facial sensation intact/muscles of mastication intact, Yes Equal, round and reactive pupils present, Yes Normal accommodation reflex present, Yes Nystagmus not present, Yes Normal facial strength present, Yes Midline tongue present, Yes Symmetric palate elevation present, Yes Ability to bilaterally rotate head present and Yes Ability to bilaterally elevate shoulders present Motor exam (neuro): Abnormal motor strength present (weak quads on resistance) and Abnormal muscle tone present Coordination: ipybua-dv-cjhx test normal Psych Appearance: well kempt Thought content: Normal thought content present Insight: Good insight present (Psych) Judgement: Good judgement present (Psych) Orientation What is the (year) (season) (date) (day) (month)?: year, season, date, day and month Where are we (state) (county) (town or city) (hospital) (floor)?: state, county, town or city, hospital/clinic and floor Registration Name of 3 unrelated objects clearly and slowly, then ask patient to repeat all 3 of them. (1st repeat determines score. Make sure they can repeat all three): object 1, object 2 and object 3 Attention & Calculation (CHOOSE ONE) Ask pt to begin with 100 & count backward by 7. Stop after 5 repeats. If pt cannot ask them to spell the word WORLD backward.: 93, 86, 79, 72 and 65 Recall Ask patient to repeat the 3 items from question #3.: object 1, object 2 and object 3 Language Show patient a wristwatch & ask what it is. Repeat for pencil.: watch and pencil Ask the patient to repeat the phrase 'No ifs, ands, or buts' after you.: correct Ask the patient to 'take a piece of paper with their right hand' 'fold paper in half' 'place paper on floor': take paper in right hand, fold paper in half and place paper on floor Print the sentence 'CLOSE YOUR EYES' on a piece. If patient actually closes eyes then score.: followed written direction Give patient a blank piece of paper & ask to write a sentence. Score if it contains a noun & verb.: sentence contains subject and verb Ask patient to copy figure of intersecting pentagons exactly. Score if all 10 angles & 2 intersects are included.: all 10 angles present & 2 are intersected Score Score: 30 Results Reviewed Results Reviewed: MR/MR lumbar spine wo con IMPRESSION: Multilevel mild to moderate spondylosis from L2-3 to L5-S1 without compression upon neural elements. HST and PSG no evidence of ARMAAN Labs [facility] 05/2025 Assessment & Plan Assessment & Plan (1) Lumbar spondylosis: Code(s): M47.816 - Spondylosis without myelopathy or radiculopathy, lumbar region Category: Medical (2) Memory loss: Comment: tested well on MOCA Code(s): R41.3 - Other amnesia Category: Medical (3) Chronic fatigue: Code(s): R53.82 - Chronic fatigue, unspecified Category: Medical (4) Insomnia: Comment: discontinue melatonin Code(s): G47.00 - Insomnia, unspecified Category: Medical Qualifiers: Insomnia type: unspecified Qualified Code(s): G47.00 - Insomnia, unspecified (5) Grief: Code(s): F43.21 - Adjustment disorder with depressed mood Category: Medical (6) Lumbar radiculopathy: Code(s): M54.16 - Radiculopathy, lumbar region Category: Medical (7) Chronic lower back pain: Code(s): M54.50 - Low back pain, unspecified; G89.29 - Other chronic pain Category: Medical Qualifiers: Back pain laterality: left Sciatica presence: with sciatica Sciatica laterality: sciatica of left side Qualified Code(s): M54.42 - Lumbago with sciatica, left side; G89.29 - Other chronic pain (8) Cervicalgia of fzvreppq-xxhkkmy-zsfbk region: Code(s): M54.2 - Cervicalgia Category: Medical (9) Sciatica: Code(s): M54.30 - Sciatica, unspecified side Category: Medical Qualifiers: Laterality: right Qualified Code(s): M54.31 - Sciatica, right side (10) Forgetfulness: Code(s): R68.89 - Other general symptoms and signs Category: Medical Plan Insomnia continue taking Natrol supplement as needed for sleep difficulties, she discontiued Melatonin s/e of vivid dreams. Headaches improved, Cervicalgia, take cyclobenzaprine 5mg PO at bedtime, do not take during the day as this medication is sedating and it will make you sleepy. Do not drive after taking this medication. May adjunct with tylenol otc prn. L. sciatica pain Physical [facility] [place] in [place]. rx written today. MRI reviwed with pt. Lumbosacral sponylosis, continue PT/ anti-inflammatories/ pain management if needed for corticosteroid shots. F/u in 3months Orders: Orders Complete Blood Count no Diff Today R41.3 - Other amnesia, R53.82 - Chronic fatigue, unspecified Comprehensive Met. Panel Today R41.3 - Other amnesia, R53.82 - Chronic fatigue, unspecified Homocysteine Today G47.9 - Sleep disorder, unspecified, R41.3 - Other amnesia, R53.82 - Chronic fatigue, unspecified, R53.83 - Other fatigue Vitamin D 25-OH Total Today R41.3 - Other amnesia, R53.82 - Chronic fatigue, unspecified Hemoglobin A1c Today R41.3 - Other amnesia, R53.82 - Chronic fatigue, unspecified Ferritin Today R41.3 - Other amnesia, R53.82 - Chronic fatigue, unspecified Methylmalonic Acid Today G47.9 - Sleep disorder, unspecified, R41.3 - Other amnesia, R53.82 - Chronic fatigue, unspecified, R53.83 - Other fatigue Vitamin B12 and Folate Today R41.3 - Other amnesia, R53.82 - Chronic fatigue, unspecified TSH reflex Free T4 Today R41.3 - Other amnesia, R53.82 - Chronic fatigue, unspecified Vitamin B6 Today R41.3 - Other amnesia, R53.82 - Chronic fatigue, unspecified Other Ref Test - Misc Today F02.80 - Dementia in other diseases classified elsewhere, unspecified severity, without behavioral disturbance, psychotic disturbance, mood disturbance, and anxiety, G30.9 - Alzheimer's disease, unspecified, R41.3 - Other amnesia, R53.82 - Chronic fatigue, unspecified Patient Instructions: Symptoms of lumbar spondylosis may be treated with physical therapy, exercises and, sometimes, oral or injected medications: Zmqukhns-cwwdkqnuj-psrqct lower back stretches and exercises help strengthen your core, hips and gluteal muscles (?glutes?) to help support the lumbar spine while increasing flexibility. Examples include glute bridging, abdominal bracing, pelvic tilts and lying vshh-ke-tpbbi-stretching.? Oral, nonsteroidal anti-inflammatory drugs ([email or web address]/[email or web address], such as ibuprofen) and oral corticosteroids may be used to decrease acute pain and inflammation related to lumbar radiculopathy from lumbar spondylosis. Importantly, long-term use of oral steroids and anti-inflammatory medications can have some?negative side [email or web address]-suhslo-xvku-effects-[email or web address]. Coding Level of Care Code Est Pt Level 4 (67510) Diagnoses Lumbar spondylosis M47.816 Memory loss R41.3 Chronic fatigue R53.82 Insomnia, unspecified type G47.00 Insomnia type: unspecified Grief F43.21 Lumbar radiculopathy M54.16 Chronic left-sided low back pain with left-sided sciatica M54.42; G89.29 Back pain laterality: left Sciatica presence: with sciatica Sciatica laterality: sciatica of left side Cervicalgia of eswaujjb-yeycoqp-acyux region M54.2 Sciatica of right side M54.31 Laterality: right Forgetfulness R68.89
[2025-11-04 13:06] VITALS: BP 124/68; PULSE 60; O2SAT 88; BMI 25.3
[2025-11-04 14:16] VITALS: O2SAT 97
--- OUTSIDE RECORDS SUMMARY | 2025-11-04 18:41 | XMS_ITS | Clinical Summary ---
Author Organization [facility] [address] [place] [address] Care Team Providers Care Curtain Stitcher Name Role Phone No Pcp, Per Patient [...] Noted Date Diagnosed Date Paroxysmal atrial fibrillation 09/07/2024 Retinal artery occlusion 09/07/2024 HTN (hypertension) 09/07/2024 Hyperlipidemia 09/07/2024 Syncope 09/07/2024 COPD (chronic obstructive pulmonary disease) Chronic headache disorder 09/07/2024 Venous insufficiency of both lower extremities 1 Asthma 09/07/2024 Anxiety 09/07/2024 Gastroesophageal reflux disease 09/07/2024 [...] Screening 1968 Medicare Annual Wellness (AWV) 09/21/2018 Depression Screening 11/21/2024 COVID-19 Vaccine ( season) 2025 09/19/2023, 10/24/2022, 10/12/2021, Additional history exists Influenza Vaccine (#1) 2025 , 08/08/2023, 08/28/2021, [...] age to complete this topic HPV Vaccines (No Doses Required) Completed Hepatitis A Vaccines Aged Out No long [...] topic Insurance MEDICARE PART A AND B [facility] MEDICARE SUPPLEMENT Advance Directives * Full Code (Latest Code Status on File) Date Activated Date Inactivated Comments 09/14/2024 1:28 PM Care Teams Curtain Stitcher Relationship Specialty Start Date End Date No Pcp, Per Patient [facility] P[facility] - General Spindle Maker 09/14/24
--- OUTSIDE RECORDS SUMMARY | 2025-11-04 18:41 | XMS_ITS | Clinical Summary ---
Author Organization 175 [facility] Address [address] [place] [address] Phone Care Team Providers Care Detective Bureau Chief Name Role Phone Robert Henriquez MD Primary Care Provider Allergies Active Allergy Reactions Criticality Noted Date Comments Gluten GI intolerance 06/19/2025 Latex Hives High 05/03/2023 Sulfa (Sulfonamide Antibiotics) Hives High 11/21 Medications albuterol HFA (PROAIR HFA ; PROVENTIL HFA ; VENTOLIN HFA) 90 mcg/actuation inhaler Inhale 2 Puffs into the lungs 4 times daily as needed for Cough, Wheezing or Shortness of Breath. 4 Active pantoprazole (PROTONIX) 40 mg EC tablet Take 1 tablet (40 mg total) by mouth 1 (one) time each day before breakfast. 180 tablet 1 5 Active busPIRone (BUSPAR) 5 mg tablet Take 1 tablet (5 mg total) by mouth 2 (two) times a day. Takes PRN 5 Active cholecalciferol (VITAMIN D-3) 50 mcg (2,000 unit) tablet Take 1 tablet (2,000 Units total) by mouth 1 (one) time each day. Active multivitamin tablet Take 1 tablet by mouth 1 (one) time each day. Active ascorbic acid (VITAMIN C) 250 mg tablet Take 1 tablet (250 mg total) by mouth 1 (one) time each day. Active hydroCHLOROthia zide (HYDRODIURIL) 25 mg tablet Take 0.5 tablets (12.5 mg total) by mouth 1 (one) time each day. 45 each 1 5 Active rosuvastatin (CRESTOR) 5 mg tablet Take 1 tablet (5 mg total) by mouth 1 (one) time each day. 90 tablet 3 5 Active rivaroxaban (XARELTO) 20 mg tablet Take 1 tablet (20 mg total) by mouth 1 (one) time each day. With meals 90 tablet 2 5 Active losartan (COZAAR) 100 mg tablet Take 1 tablet (100 mg total) by mouth 1 (one) time each day. For 180 days. 90 each 3 5 10/28/20 26 Active losartan (COZAAR) 100 mg tablet Take 1 tablet (100 mg total) by mouth 1 (one) time each day. For 180 days. 30 each 5 10/28/20 25 Discontinu ed(Reorder ) Active Problems Problem Noted Date Diagnosed Date COPD, mild 09/21/2024 Overview (09/21/2024): pulm Dr. Hernandez GERD (gastroesophageal reflux disease) 4 IBS (irritable bowel syndrome) 09/21/2024 Prediabetes 09/21/2024 Venous insufficiency 07/07/2022 Overview (09/21/2024): Last Assessment & Plan: The patient has a history of bilateral lower extremity venous insufficiency. Her symptoms are currently well controlled with the use of her compression stockings. We will continue with her current therapy. Atrial fibrillation 04/26/2022 Overview (07/01/2025): Patient with 30-day ROCT; noted to have episode of rate controlled atrial fibrillation on monitor in April 2022. Assessment & Plan (10/02/2025 3:21 PM EST): The patient has a history of paroxysmal atrial fibrillation. The patient is not on any rate control therapy. A-fib burden is monitored via her ILR. No recent episodes of A-fib. Also, the patient has a [id number] score of 5 and continues on anticoagulation therapy with apixaban. No episodes of abnormal bleeding have been noted. Will continue current therapy. Assessment & Plan (07/01/2025 10:10 AM EDT): Patient has history of paroxysmal atrial fibrillation captured on ambulatory monitoring in the past. She has an elevated chads Vascor and for this reason she remains on anticoagulation. She is on Xarelto for anticoagulation. Thyroid nodule 12/29/2021 Retinal artery occlusion 12/25/2021 CVA (cerebral vascular accident) 12/23/2021 Overview (09/21/2024): Last Assessment & Plan: The patient has a history of a retinal artery occlusion in the past. The radial artery occlusion is considered a CVA equivalent. She has been noted to have paroxysmal atrial fibrillation on ambulatory EKG monitoring. Such, she continues on anticoagulation therapy with Eliquis 5 mg orally twice daily. Fall 11/26/2019 Overview (09/21/2024): [address] [facility] - head injury with LOC Head injury with loss of consciousness 9 Overview (09/21/2024): 10/2019 concussion s/p fall in parking lot at [facility] due to syncope Lipodystrophy 10/08/2019 Macromastia 08/19/2019 Neck pain 08/19/2019 Benign neoplasm of bone 02/27/2018 Hyperlipidemia 10/24/2017 Overview (09/21/2024): Last Assessment & Plan: The patient has a history of hyperlipidemia. She is currently on rosuvastatin 10 mg orally daily. Last lipid panel showed an adequate cholesterol control. Such, we will continue her current medication regimen. Assessment & Plan (10/02/2025 3:21 PM EST): The patient has a history of hyperlipidemia. The patient is currently on rosuvastatin. Cholesterol is well-controlled. Will continue current therapy. Hypertension 10/24/2017 Assessment & Plan (10/02/2025 3:21 PM EST): The patient has a history of arterial hypertension. The patient's blood pressure today was noted to be well controlled. We'll continue the current antihypertensive medication regimen. Assessment & Plan (07/01/2025 10:10 AM EDT): Patient is pressure is elevated today with a reading of 142/84. Home blood pressure readings have also been elevated. I will add back her hydrochlorothiazide 12.5 mg once a day. She will be having labs done with her primary care provider in 3 weeks and also will be seeing her primary care provider in 3 weeks. If her blood pressure remains elevated I would consider increasing the hydrochlorothiazide to 25 mg daily and keeping a close eye on her electrolytes as she did have some borderline hypokalemia during hospitalization. 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 She does have an ILR in place. Lower limit has been adjusted to alert us if her heart rate falls below 40. Patient is reporting some bradycardia however she just stopped taking her carvedilol just a few days ago. She will continue to monitor her symptoms. Patient encouraged to continue to remain active. She will be seeing her primary care provider again in 3 weeks at which point they can reevaluate her fatigue symptoms. Will continue to monitor her heart rate with the implantable loop recorder. Encounters Date Type Department Care Team Description 10/28/2025 12:00 PM EST Office Visit Internal Medicine - [place] [address] [place] [id number] Robert Henriquez MD Medicare annual wellness visit, subsequent (Primary Dx); Paroxysmal atrial fibrillation ([facility]/HCC V24, CMS/[facility] V28); Cerebrovascular accident (CVA), unspecified mechanism (CMS/HCC V24, CMS/HCC V28); COPD, mild (CMS/[facility] V24, CMS/[facility] V28); Mild intermittent asthma, unspecified whether complicated; Other fatigue; Other abnormal glucose; Primary hypertension; Pure hypercholesterolemia; Prediabetes; Routine general medical examination at a health care facility; Benign head tremor 10/02/2025 10:50 AM EST Office Visit [facility] [address] [place] [address] Juan Colorado MD Paroxysmal atrial fibrillation ([facility]/HCC V24, CMS/[facility] V28) (Primary Dx); Primary hypertension; Pure hypercholesterolemia 09/18/2025 5:30 PM EDT Ancillary Procedure [facility] [address] [place] [address] 09/18/2025 Telephone [facility] [address] [place] [address] Juan Colorado MD 08/21/[address] [facility] [address] [place] [address] Juan Colorado MD 08/19/2025 9:20 PM EDT Ancillary Procedure [facility] [address] [place] [address] 08/16/2025 9:30 AM EDT Office Visit Pulmonology - [place] [address] [place] [phone] Christiano Hernandez MD Chronic obstructive pulmonary disease, unspecified COPD type ([facility] V24, [facility] V28) (Primary Dx) 08/12/2025 Telephone Internal Medicine - [address] [place] [address] Fina Ojeda MA from Last 3 Months Immunizations Immunization Administration Dates Next Due Influenza Quadravalent, 0.5m l (Fluad) 65yo and older 08/28/2021 Influenza trivalent, 0.5mL ( Fluad) 65yo and older 08/27/2024,08/08/2023,08/15/2019 Influenza trivalent, 0.5mL ( Fluzone High-dose) 65yo and older 09/13/2018 Influenza trivalent, 0.5mL, preservative free (Fluarix; FluLaval; Fluzone) ages 6mo and older (Afluria) 3 years and older 10/04/2015 Influenza trivalent, with pr eservative (Fluzone; Afluria) 6mo and older 12/19/2017 Windows[employer] SARS-CoV-2 COVID-19, mRNA, LNP-S, preservative free 10/12/2021,03/05/2021,02/12/2021 Pneumococcal conjugate 13 va lent (Prevnar 13, PCV13) 2mo and older 09/20/2016 Pneumococcal polysaccharide 23 valent (Pneumovax 23) 2yo and older 08/15/2019 Tdap Tetanus diptheria acell ular pertussis (Boostrix; Adacel) 7yo and older 08/08/2023 Zoster Live 10/04/2015 Surgical History Surgery Date Site/Laterality Comments BLADDER SURGERY 03/22/2008 PROCEDURE: HISTORICAL BLADDER SURGERY; COMMENT: partial cystectomy, removal of bladder tumor 2.2cm paraganglioma EYE SURGERY PROCEDURE: HISTORICAL EYE SURGERY; COMMENT: blepharoplasty OTHER SURGICAL HISTORY 08/2022 Left PROCEDURE: ---- OTHER ----; COMMENT: groin abscess Medical History Medical History Date Comments Allergic rhinitis 05/18/2017 DX:Allergic rh initis Alopecia 06/24/2011 DX:Alopecia Anxiety 05/18/2017 DX:Anxiety Benign neoplasm of bone 02/27/2018 DX:Benig n neoplasm of bone Dry eyes 05/20/2016 DX:Dry eyes History of partial cystectomy 05/20/2016 DX :History of partial cystectomy; COMMENT: 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 03/22/2008 Hyperlipidemia 10/24/2017 DX:Hyperlipidemi a Hypertension 10/24/2017 DX:Hypertension Insomnia 06/05/2014 DX:Insomnia Pheochromocytoma 01/18/2017 DX:Pheochromocy evelio Pulmonary nodule 10/24/2017 DX:Pulmonary no dule IBS (irritable bowel syndrome) D X:IBS (irritable bowel syndrome) GERD (gastroesophageal reflux disease) DX:GERD (gastroesophageal reflux disease) COPD, mild (CMS/HCC V24, CMS/HCC V28) DX:COPD, mild (HCC); COMMENT: pulm Dr. Hernandez Prediabetes DX:Prediabetes Family History Medical History Relation Name Comments Other: Other Mother Diabetes Other Relation Name Status Comments Father Mother Other Social History Tobacco Use Types Packs/Day Years Used Date Smoking Tobacco: Former Cigarettes Smokeless Tobacco: Never Tobacco Cessation:Counseling Given: Not Answered Comments:Quit smoking 60+ years Alcohol Use Standard Drinks/Week Comments Not Currently 0 (1 standard drink = 0.6 oz pur e alcohol) Housing Instability Answer Date Recorde d Are you worried that in the next 2 months you may not have stable housing? No 10/28/2025 Food Access & Nutrition Answer Date Rec orded Do you have access to a vari ety of food including fruits and vegetables? No 10/28/2025 Health Literacy Answer Date Recorded How often do you need to hav e someone help you when you read instructions, pamphlets, or other written material from your doctor or pharmacy? Never 10/28/2025 Caregiver: How often do you need to have someone help you when you read instructions, pamphlets, or other written material from your doctor or pharmacy? Not on file 10/28/2025 Financial Risk Answer Date Recorded How hard is it for you to pa y for the very basics like food, housing, medical care, and air conditioning / heating? Not very hard 10/28/2025 Transportation Answer Date Recorded Has the lack of transportati on kept you from meetings, work, or from getting things needed for daily living? No Has the lack of transportati on kept you from medical appointments or from getting medications? No 10/28/2025 Social Isolation Answer Date Recorded How often do you feel lonely or isolated from th ose around you? Never 10/28/2025 Food Risk Answer Date Recorded Within the past 12 months we worried whether our food would run out before we got money to buy more. Never true 10/28/2025 Within the past 12 months th e food we bought just didn't last and we didn't have money to get more. Never true 10/28/2025 Dependent Care Answer Date Recorded Do you need help finding or paying for care for your loved ones. For example, salesperson children's shoes or elderly care for an older adult? No 10/28/2025 Education Answer Date Recorded Do you think completing more education or training, like finishing a GED, going to college, or learning a trade, would be helpful for you? No 10/28/2025 Employment and Income Answer Date Recor ded During the last four weeks, have you been actively looking for work? No 10/28/2025 Living Situation Answer Date Recorded What is your living situation? Unrecognized valu e 10/28/2025 Interpersonal Safety Answer Date Record ed Physical Abuse Unrecognized value 06/19/2025 Verbal Abuse Unrecognized value 06/19/2025 Comments No Sex and Gender Information Value Date Recorded Sex Assigned at Female 11/01/2024 3:10 PM EST Legal Sex Female 8:34 PM EST Gender Identity Female 11/01/2024 3:10 PM EST Sexual Orientation Straight 11/01/2024 3: 10 PM EST Last Filed Vital Signs Vital Sign Reading Time Taken Comments Blood Pressure 150/74 10/28/2025 12:14 PM EST Pulse 58 10/28/2025 11:42 AM EST Temperature 35.9 C (96.6 F) 10/28/2025 11:42 AM EST Respiratory Rate 16 08/16/2025 9:39 AM EDT Oxygen Saturation 96% 10/28/2025 11:42 AM EST Inhaled Oxygen Concentration - - Weight 81.2 kg (179 lb) 10/28/2025 11:42 AM EST Height 177.8 cm (5' 10 ) 10/02/2025 10:10 AM EST Body Mass Index 25.68 10/02/2025 10:10 AM EST Plan of Treatment Upcoming Encounters Date Type Department Care Team (Late st Contact Info) Description 08/18/2026 9:45 AM EDT Office Visit Pulmonology - [address] [place] [address] Christiano Hernandez MD [address] [place] [phone] Health Maintenance Due Date Last Done Comments COVID-19 Vaccine ( season) 2025 09/19/2023, 10/24/2022, 10/12/2021, Additional history exists Influenza Vaccine (#1) 2025 , 08/08/2023, 08/28/2021, Additional history exists Breast Cancer Screening 05/18/2026 05/18/2024 Hypertension/CHF/CAD Annual BMP Blood Test 06/19/2026 06/19/2025, 06/18/2025, 12/03/2024, Additional history exists Falls Risk Assessment 10/28/2026 10/28/2025 , 06/19/2025, 10/31/2024, Additional history exists Medicare Annual Wellness Visit 10/28/2026 10/28/2025 Social Influencers of Health Screening 10/28/2026 10/28/2025, 10/31/2024 Colorectal Cancer Screening: Colonoscopy 09/11/2029 09/11/2019, 09/11/2019, 09/11/2019 Cholesterol Screening (Lipid Panel) 12/03/2029 12/03/2024, 01/06/2024, 01/06/2024 DTaP,Tdap,and Td Vaccines (2 - Td or Tdap) 08/08/2033 08/08/2023 Osteoporosis Screening (Bone Density Screening) 11/12/2034 11/12/2024 Pneumococcal Vaccine: 50+ Years Completed 08/15/2019, 09/20/2016 Hepatitis C Screening Completed 01/06/2024, 024 RSV Immunization Adult Patients Completed 11/12/2024 Zoster Vaccines Completed 11/12/2024, 08/23, 10/04/2015 Depression Screening Completed 10/28/2025 HIB Vaccines Aged Out No longer eligi [...] on patient's age to complete this topic MMR Vaccines Aged Out No longer eligi ble based on patient's age to complete this topic Meningococcal ACWY Vaccine Aged Out N o longer eligible based on patient's age to complete this topic Meningococcal B Vaccine Aged Out No l onger eligible based on patient's age to complete this topic RSV Immunization Patients Under 20 months Aged Out No longer eligible based on patient's age to complete this topic Varicella Vaccines Aged Out No longer eligible based on patient's age to complete this topic Medical Devices Implanted Type Area Labeling Associate Device Identifier Shelf Expiration Date Model / Serial / Lot Bsci-Crm [id number] Implanted:01/19 (Quantity not on file) Cardiac Loop Recorder [employer] CARD RHYTHM MGMT [id number] / [id number] / Procedures Procedure Name Priority Date/Time Associated Diagnosis Comments CARDIAC DEVICE CHECK- REMOTE- MURJ Routine 09/18/2025 5:27 PM EDT CARDIAC DEVICE CHECK- REMOTE- MURJ Routine 08/19/2025 9:18 PM EDT BASIC METABOLIC PANEL Routine 06/19/2025 7:33 AM EDT LIPID PANEL WITH REFLEX TO DIRECT LDL Routine 12/03/2024 3:26 PM EST Medicare annual wellness visit, subsequent Hyperlipidemia, unspecified hyperlipidemia type BD BONE DENSITY DXA AXIAL SKELETON Routine 11/12/2024 9:21 AM EST Encounter for osteoporosis screening in asymptomatic postmenopausal patient FALLS RISK ASSESSMENT Routine 02/09/2024 HEPATITIS C SCREENING Routine 01/06/2024 COLONOSCOPY Routine 09/11/2019 from Last 3 Months or Most Recently Relevant to Health Maintenance Results * Cardiac device check - Remote- MURJ (09/18/2025 5:27 PM EDT) Only the most recent of2 resultswithin the time period is included. Date Time Interrogation Session [id number] CV DEVICE CHECK Type Interrogation Session Remote Scheduled CV DEVICE CHECK Implantable Pulse Generator Labeling Associate BSX CV DEVICE CHECK Implantable Pulse Generator Type ILR CV DEVICE CHECK Implantable Pulse Generator Model M301 CV DEVICE CHECK Implantable Pulse Generator Serial Number [id number] CV DEVICE CHECK Implantable Pulse Generator Implant Date 20240206 CV DEVICE CHECK Battery Status Beginning of Service CV DEVICE CHECK Atrial Tachy Statistic AT/AF [place] Percent 0.00 CV DEVICE CHECK Date of Service 2025-10-01 CV DEVICE CHECK Anatomical Region Laterality Modality Device Interroga tion 09/16/2025 1:03 AM EDT Impressions 09/18/2025 2:49 PM EDT Normal Remote: No Events * This is a normal remote diagnostic device check * Alerts or events: None * Battery data was reviewed * Battery status: GUANAKO, * Presenting rhythm reviewed * Heart Rate Histograms reviewed Narrative Procedure Note Socrates Laura MD - 09/18/2025 IMPRESSION: Normal Remote: No Events * This is a normal remote diagnostic device check * Alerts or events: None * Battery data was reviewed * Battery status: GUANAKO, * Presenting rhythm reviewed * Heart Rate Histograms reviewed Socrates Laura MD CV IMPLANTABLE CARDIAC DEV ICE PROCEDURES Final Result * (ABNORMAL) Basic metabolic panel (06/19/2025 7:33 AM EDT) Sodium 142 133 - 145 mmol/L LAB CHEMISTRY METHOD 06/19/2025 8:13 AM EDT [facility] Potassium 3.7 3.5 - 5.5 mmol/L LAB CHEMISTRY METHOD 06/19/2025 8:13 AM EDT [facility] Chloride 108 96 - 110 mmol/L LAB CHEMISTRY METHOD 06/19/2025 8:13 AM EDT [facility] CO2 31 21 - 32 mmol/L LAB CHEMISTRY METHOD 06/19/2025 8:13 AM [facility] Anion Gap 3 3 - 11 LAB CHEMISTRY METHOD 06/19/2025 8:13 AM [facility] Glucose 104(H) 70 - 100 mg/dL LAB CHEMISTRY METHOD 06/19/2025 8:13 AM [facility] BUN 14 5 - 25 mg/dL LAB CHEMISTRY METHOD 06/19/2025 8:13 AM [facility] Creatinine 0.79 0.50 - 1.10 mg/dL LAB CHEMISTRY METHOD 06/19/2025 8:13 AM [facility] eGFR 79 >=60 mL/min/1. 73m2 LAB CHEMISTRY METHOD 06/19/2025 8:13 AM [facility] Comment:Calculation based on the Chronic Kidney Disease Epidemiology Collaboration (CKD-EPI) equation refit without adjustment for race. BUN/Creatinine Ratio 17.7 LAB CHEMISTRY METHOD 06/19/2025 8:13 AM [facility] Calcium 9.8 8.5 - 10.5 mg/dL LAB CHEMISTRY METHOD 06/19/2025 8:13 AM [facility] Blood Venous blood specimen / Unknown Venipuncture / Unknown 06/19/2025 7:33 AM EDT 06/19/2025 7:40 AM EDT us Licha Danielson MD LAB BLOOD ORDERABLES Final Res ult [facility] [address] [place] [address], * Lipid panel with reflex to direct LDL (12/03/2024 3:26 PM EST) Cholesterol 155 0 - 200 mg/dL LAB CHEMISTRY METHOD 12/03/2024 8:10 PM EST [facility] Triglycerides 130 0 - 150 mg/dL LAB CHEMISTRY METHOD 12/03/2024 8:10 PM EST [facility] HDL 65 >=40 mg/dL LAB CHEMISTRY METHOD 12/03/2024 8:10 PM EST [facility] LDL Calculated 64 0 - 100 mg/dL LAB CHEMISTRY METHOD 12/03/2024 8:10 PM EST [facility] VLDL Cholesterol Dilshad 26 mg/dL LAB CHEMISTRY METHOD 12/03/2024 8:10 PM EST [facility] Non HDL Chol. (LDL+VLDL) 90 <145 mg/dL LAB CHEMISTRY METHOD 12/03/2024 8:10 PM EST [facility] Chol/HDL Ratio 2.4 0.0 - 4.4 LAB CHEMISTRY METHOD 12/03/2024 8:10 PM EST [facility] Blood Venous blood specimen / Unknown Venipuncture / Unknown 12/03/2024 3:26 PM EST 12/03/2024 3:26 PM EST Robert Henriquez MD LAB BLOOD ORDERABLES Final Resul t [facility] [address] [place] [address], * BD Bone Density DXA Axial Skeleton (11/12/2024 9:21 AM EST) Anatomical Region Laterality Modality Wrist, Hip, L-spine Bone Densito metry 11/12/2024 9:33 AM EST Impressions 11/12/2024 9:34 AM EST 1. There is no evidence of osteoporosis or osteopenia. 2. FRAX analysis yields a 10-year probability of major osteoporotic fracture of 3.1% and a 10-year probability of hip fracture of 0.2%. Code 49541 -------- FINAL REPORT -------- Dictated By: Venkata Regalado Dictated Date: 11/12/2024 09:33 ET Assigned Physician: Venkata Regalado Reviewed and Electronically Signed By: Venkata Regalado Signed Date: 11/12/2024 09:34 ET Workstation ID: [id number] Transcribed By: Self Edit Transcribed Date: 11/12/2024 09:33 ET Narrative 11/12/2024 9:34 AM EST HISTORY: The patient is a 74-year-old postmenopausal female with clinical concern for metabolic bone disease. FINDINGS: Dual energy x-ray absorptiometry of the lumbar spine and femurs is performed. The mean bone mineral density at L1-L4 is 1.321 gm/cm2 which is 112% of that of young normals and 116% of that of age matched controls. This yields a T-score of 1.2 and a Z-score of 1.5 and there is therefore no evidence of osteoporosis or osteopenia here. The mean bone mineral density of the femurs bilaterally is 1.120 gm/cm2 which is 111% of that of young normals and 114% of that of age matched controls. This yields a T-score of 0.9 and a Z-score of 1.1 and there is therefore no evidence of osteoporosis or osteopenia here. Procedure Note Venkata Regalado MD - 11/12/2024 HISTORY: The patient is a 74-year-old postmenopausal female with clinicalconcern for metabolic bone disease. FINDINGS: Dual energy x-ray absorptiometry of the lumbar spine and femursis performed. The mean bone mineral density at L1-L4 is 1.321 gm/cm2 whichis 112% of that of young normals and 116% of that of age matched controls.This yields a T- score of 1.2 and a Z-score of 1.5 and there is thereforeno evidence of osteoporosis or osteopenia here. The mean bone mineral density of the femurs bilaterally is 1.120 gm/ls1twvaq is 111% of that of young normals and 114% of that of age matchedcontrols. This yields a T-score of 0.9 and a Z-score of 1.1 and there istherefore no evidence of osteoporosis or osteopenia here. IMPRESSION: 1. There is no evidence of osteoporosis or osteopenia. 2. FRAX analysis yields a 10-year probability of major osteoporoticfracture of 3.1% and a 10-year probability of hip fracture of 0.2%. Code 29498 -------- FINAL REPORT -------- Dictated By: Venkata Regalado Dictated Date: 11/12/2024 09:33 ET Assigned Physician: Venkata Regalado Reviewed and Electronically Signed By: Venkata Regalado Signed Date: 11/12/2024 09:34 ET Workstation ID: [id number] Transcribed By: Self Edit Transcribed Date: 11/12/2024 09:33 ET Robert Henriquez MD IMG DXA PROCEDURES Final Result * Falls Risk Assessment (02/09/2024) Pathologist [facility] Falls Risk Assessment Abstracted Historical Provider HEALTH MAINTENANCE Final Result * Hepatitis C Screening (01/06/2024) Pathologist [facility] [place] Hepatitis C Screening Abstracted Historical Provider HEALTH MAINTENANCE Final Result * Colonoscopy (09/11/2019) Pathologist [facility] [place] Colonoscopy No interpretation , Abstracted Anatomical Region Laterality Modality Other Historical Provider HEALTH MAINTENANCE Final Result from Last 3 Months or Most Recently Relevant to Health Maintenance Insurance [facility] [place] [id number] Advance Directives * Full Code - Confirmed (Latest Code Status on File) Date Activated Date Inactivated Comments 10/31/2024 11:[address] [facility] was ascertained in the following way: Code status discussion: discussion with patient To update the patient's code status, place a code status order. Do not modify or discontinue any currently active code status orders. Care Teams Detective Bureau Chief Relationship Specialty Start Date End Date Robert Henriquez MD [address] [place] [id number] PCP - General Internal Medicine 10/31/24
== END 2025-11-04 14:16 | disposition home or self-care (01) ==
LOC: HO.HSMS 12:53
PROVIDERS: PCP Physician Assistant; Visit Provider Physician Assistant Medical
DX: M47.816 Spondylosis without myelopathy or radiculopathy, lumbar region (principal); R41.3 Other amnesia; R53.82 Chronic fatigue, unspecified; G47.00 Insomnia, unspecified; F43.21 Adjustment disorder with depressed mood; M54.16 Radiculopathy, lumbar region; M54.42 Lumbago with sciatica, left side; G89.29 Other chronic pain; M54.2 Cervicalgia; M54.31 Sciatica, right side; R68.89 Other general symptoms and signs
CPT/HCPCS: 99214

== ENCOUNTER → 2025-11-04 12:53 | Outpatient (BNVA) | payer MEDICARE, OTHER, SELFPAY | PROVIDERS: PCP Physician Assistant; Visit Provider Physician Assistant Medical | DX: M47.816 Spondylosis without myelopathy or radiculopathy, lumbar region (principal); M54.16 Radiculopathy, lumbar region; M54.42 Lumbago with sciatica, left side; G89.29 Other chronic pain; G47.00 Insomnia, unspecified; R53.82 Chronic fatigue, unspecified; F43.21 Adjustment disorder with depressed mood | CPT/HCPCS: 99212 ==